=== PATIENT | male | born 1985 | race Two or more races ===

== ENCOUNTER 2021-08-20 01:16 | Emergency (ER) | payer OTHER ==
[~2021-08-20] VITALS: Ht 182.9 cm; Wt 113.4 kg
[2021-08-20] MEDS ORDERED: ACETAMINOPHEN650 M2 PO (02:49)
[2021-08-20] MEDS ORDERED: NORFLEX100MG PO (02:49)
[2021-08-20] MEDS ORDERED: MEDROLPACK PO (02:49)
== END 2021-08-20 03:00 | disposition home or self-care (01) ==
LOC: ER 01:16
DX: M54.30 Sciatica, unspecified side (principal); Z88.6 Allergy status to analgesic agent